=== PATIENT | male | born 1960 | race Caucasian/White ===

== ENCOUNTER 2021-04-01 13:14 | Outpatient (CLI) | payer BC, SELFPAY ==
--- NOTE | ~2021-04-01 | XR_ITS ---
EXAMINATION: XR fl inj hip RT for MR/CT DATE: 04/01/2021 14:35 INDICATION: Right hip pain TECHNIQUE: A time-out was performed to verify the patient's name, date of , and procedure to b e performed. The procedure, including the risks and benefits, was discussed with the patient. Risks d iscussed included bleeding and infection. The patient understood the risks and agreed to proceed. The skin overlying the right hip joint was prepared and draped in usual sterile fashion. The skin and vázquez bcutaneous tissues were infiltrated with 1% lidocaine for local anesthesia. A 22 G needle was advanc ed under fluoroscopic guidance into the joint. Injectate consisting of 12 mL of 1:100 0.1 mmol/kg Mul tihance, 1:4 1% lidocaine, and 1:4 Omnipaque 240 was instilled. The needle was removed and the entry site was cleaned and dressed. There were no immediate complications. Fluoroscopy exposure time was 0. 7 minutes. The DAP for this procedure was 3.198 Gycm2. FINDINGS: Real-time fluoroscopy demonstrates the needle and contrast in the right hip joint. IMPRESSION: 1. Successful right hip joint injection of contrast for subsequent MR arthrography. Reviewed, dictated and finalized at location B. IMPRESSION: 1. Successful right hip joint injection of contrast for subsequent MR arthrogra phy.
--- NOTE | ~2021-04-01 | MR_ITS ---
EXAMINATION: MR hip RT w con DATE: 04/01/2021 15:30 INDICATION: Right hip pain TECHNIQUE: Magnetic resonance (MR) arthrogram of the right hip was performed following intra-articula r gadolinium contrast injection and without intravenous contrast. Details of the hip joint injection have been dictated separately. Sequences included small field of view of the right hip with axial and sagittal T1-weighted FS SE and T2-weighted FS FSE and coronal T1-weighted SE and T2-weighted FS FSE . Additional T1-weighted FGRE images in a radial pattern oriented orthogonal to the acetabular rim we re obtained for evaluation of the labrum. COMPARISON: None. FINDINGS: Bones/labrum/cartilage: Alignment is normal. No fracture, avascular necrosis or pathologic marrow replacing process. Diffuse tear of the anterosuperior to posterior right acetabular labrum most severe posterior superiorly at the 10:30 position where it appears thickened and globular with amorphous increased signal. Mild left hip osteoarthritis with nonuniform joint space narrowing and partial-thickness cartilage loss also m ost severe posterior superiorly but without degenerative subchondral changes. Severe lower lumbar spo ndylosis. Fluid: Injected contrast within the right hip joint space with no evident loose osteochondral bodies. Physio logic amount of fluid in the left hip joint space. There are fluid collections along the right greate r trochanter consistent with mild right gluteus medius and gluteus minimus bursitis. Minimal right tr ochanteric bursitis. Soft tissues: Partial tears at the right greater trochanteric anterior facet insertion of the right gluteus minimus tendon and at the superolateral footplate of the anterior right gluteus medius tendon. Posterior fac et insertion appears to remain intact. Similar partial tears are suggested at the contralateral left hip on the larger field of view images but without the associated bursitis. There is relatively symme tric moderate fatty atrophy of the bilateral gluteus minimus muscle bellies and mild atrophy of the a nterior aspect of the bilateral gluteus medius muscle bellies. The bilateral iliopsoas and proximal h amstring tendons are normal. Limited evaluation of visceral organs of the pelvis is unremarkable. No pathologically enlarged pelvic/inguinal lymphadenopathy. IMPRESSION: 1. Gluteus medius and minimus bursitis with partial tears along the anterior and superolateral facet footplates of the right gluteus medius minimus and medius tendons respectively. 2. Similar partial tears suggestive the contralateral left gluteus minimus and medius tendons but wit hout associated bursitis. 3. Mild right hip osteoarthritis with diffuse labral tear. Reviewed, dictated and finalized at location A. IMPRESSION: 1. Gluteus medius and minimus bursitis with partial tears along the anterior an d superolateral facet footplates of the right gluteus medius minimus and medius tendons respectively. 2. Similar partial tears suggestive the contralateral left gluteus minimus and medius tendons but without associated bursitis. 3. Mild right hip osteoarthritis with diffuse labral tear.
== END 2021-04-01 13:15 ==
PROVIDERS: PCP Internal Medicine; Visit Provider Orthopaedic Surgery
DX: M25.551 Pain in right hip (principal); M17.11 Unilateral primary osteoarthritis, right knee; M70.71 Other bursitis of hip, right hip; S76.011A Strain of muscle, fascia and tendon of right hip, initial encounter
CPT/HCPCS: 20610; 73722; 77002; A9577; Q9966

== ENCOUNTER 2021-04-08 02:26 | Day surgery (SDC) | payer BC, SELFPAY ==
[2021-03-30 15:30] VITALS: BMI 23.8
--- NOTE | 2021-04-07 12:19 | PM.HPGS ---
History of Present Illness History of Present Illness Consent: Risks, benefits, and alternatives have been discussed and questions answered. Patient agrees to proceed with procedure. Chief complaint: hx of colon polyps Narrative: Adelso Cortez is a 60 year old male referred for colon cancer screening. He had 2 polyps removed about 6 years ago Review of Systems Review of Systems: All systems reviewed & are unremarkable except as noted in HPI and below PMFSH Social History Social History Smoking status: Never smoker Alcohol intake: current Drinks per week: 4 Living arrangements: with family Spiritual care concerns: No Meds Home Medications and Allergies Home Medications Medication Instructions Recorded Confirmed Type ascorbic acid (vitamin C) [Vitamin 1 g PO DAILY 03/30/21 03/30/21 History C] multivit,calc,ebm-JH-[id number]-lycop 1 tablet PO DAILY 03/30/21 03/30/21 History [One-A-Day Men's Complete] vitamin B complex 1 tablet PO DAILY 03/30/21 03/30/21 History Allergies Allergy/AdvReac Type Severity Reaction Status Date / Time No Known Allergies Allergy Verified 04/08/21 06:45 Exam Resp: Auscultation: clear to auscultation bilaterally Cardio: Rate: regular rate Rhythm: regular rhythm GI: GI Palp: Yes Soft to palpation and No Tenderness to palpation present (GI) Assessment and Plan Assessment and plan (1) Colon cancer screening: Code(s): Z12.11 - Encounter for screening for malignant neoplasm of colon Status: Acute Assessment and Plan: Colonoscopy with possible biopsy or polypectomy or cautery or injection of substances.
[2021-04-08 06:46] VITALS: BP 142/80; PULSE 67; RESP 16; TEMP 36.1; O2SAT 100; BMI 23.8
[2021-04-08] MEDS: LACTATED RINGERS 1,000 ML 150 ML IV CONT (06:53)
--- NOTE | 2021-04-08 07:36 | P.PNAN_ITS ---
Anes - Initial Pre Proc Eval Procedure: Operation Date: 04/08/21 08:00 Proposed Procedures p Screening Colonoscopy - Rustam Shah MD Date/Time: 04/08/21 07:36 Surgeon: Rustam Shah MD Pre Op Diagnosis: hx of colon polyps Patient Data Age: 60 Gender: M Height: 1.91 m Weight: 86.3 kg Last Vital Signs Temp 96.9 F L 04/08/21 06:46 Pulse 67 04/08/21 06:46 Resp 16 04/08/21 06:46 BP 142/80 H 04/08/21 06:46 Pulse Ox 100 04/08/21 06:46 Allergies Allergy/AdvReac Type Severity Reaction Status Date / Time No Known Allergies Allergy Verified 04/08/21 06:45 Home Medications Medication Instructions Recorded Confirmed Type ascorbic acid (vitamin C) [Vitamin 1 g PO DAILY 03/30/21 03/30/21 History C] multivit,calc,hov-UV-B6-lycop 1 tablet PO DAILY 03/30/21 03/30/21 History [One-A-Day Men's Complete] vitamin B complex 1 tablet PO DAILY 03/30/21 03/30/21 History Patient hx anesthesia problems: none Family hx anesthesia problems: none [facility] Past Medical History Medical History (Updated 04/08/21 @ 07:32 by Kurt Jansen MD) Sarcoidosis, lung Social History Social History Smoking status: Never smoker Alcohol intake: current Drinks per week: 4 Living arrangements: with family Spiritual care concerns: No Anes - Eval Final PreProcedure Day of Procedure 04/08/21 07:36 Patient weight: normal Heart: regular rate and rhythm Lungs: clear to auscultation Airway: Mallampati scale class II Neurological: alert and oriented Last oral intake: >/= 8 hours ASA classification: II Emergent: no Anesthetic plan: proceed Anesthesia type and monitoring: general GIVS and standard monitoring Informed Consent: The patient's anesthetic plan and its attendant risks and be nefits were discussed with the patient/family/POA. Questions were solicited and answers provided to the satisfaction of the patient/family/POA.
[2021-04-08 08:24] VITALS: BP 111/65; PULSE 53; RESP 16; O2SAT 95
--- NOTE | 2021-04-08 08:26 | SUR.OPER ---
SIGMOID COLON POLYP UNRETRIEVED, DR HAY AWARE, NO NEW ORDERS
[2021-04-08 08:34] VITALS: BP 108/58; PULSE 66; RESP 16; O2SAT 100
[2021-04-08 08:44] VITALS: BP 143/82; PULSE 63; RESP 18; O2SAT 100
== END 2021-04-08 08:51 | disposition home or self-care (01) ==
PROVIDERS: PCP Internal Medicine; Visit Provider Internal Medicine Gastroenterology
PROC: 0DJD8ZZ Inspection of Lower Intestinal Tract, Via Natural or Artificial Opening Endoscopic (ICD-10-PCS; CPT 45378; principal; 2021-04-08 08:00)
DX: Z12.11 Encounter for screening for malignant neoplasm of colon (principal); K57.30 Diverticulosis of large intestine without perforation or abscess without bleeding; D12.3 Benign neoplasm of transverse colon; K63.5 Polyp of colon
CPT/HCPCS: 45380; 45385; 88305; J2704; J7120

== ENCOUNTER 2024-10-29 14:18 | Outpatient (CLI) | payer BC, SELFPAY ==
--- NOTE | 2024-10-29 | ECHO_ITS ---
Patient Info Name: Adelso Cortez Age: 64 years : 1960 Gender: Male Ht: 75 in Wt: 180 lbs BSA: 2.07 m2 HR: 63 bpm BP: 160 / 87 mmHg Heart Rhythm: Sinus Rhythm Technical Quality: Good Exam Date: 10/29/2024 3:09 PM Exam Location: Echo Lab Patient Status: Outpatient Admit Date: 10/29/2024 Staff Ordering Physician: DanielChris MD Interactive Producer: Taty Paez RDCS Attending Provider: ShaylaChris MD Exam Type: CA echo doppler color flow Study Info Indications - D86.9 Sarcoidosis Complete two-dimensional, color flow and Doppler transthoracic echocardiogram is performed. Summary 1. Complete two-dimensional, color flow and Doppler transthoracic echocardiogram is performed. 2. There is mild concentric increased left ventricular wall thickness with more pronounced basal septal hypertrophy. No LVOT obstruction is seen. 3. Left ventricular chamber dimension is normal. 4. Left ventricular systolic function is normal, estimated at 60-65%. 5. The left ventricular diastolic function is grade II diastolic dysfunction. 6. Left atrial chamber dimension is mildly enlarged. 7. There is mild to moderate mitral valve regurgitation. 8. There is mild tricuspid valve regurgitation. Left Ventricle There is mild concentric increased left ventricular wall thickness with more pronounced basal septal hypertrophy. No LVOT obstruction is seen. Left ventricular chamber dimension is normal. Left ventricular systolic function is normal, estimated at 60-65%. The left ventricular diastolic function is grade II diastolic dysfunction. Right Ventricle Right ventricular chamber dimension is normal. Right ventricular systolic function is normal. Left Atria Left atrial chamber dimension is mildly enlarged. Right Atria Right atrial chamber dimension is normal. Atrial Septum Intact interatrial septum visualized by color flow imaging. Aortic Valve The aortic valve is trileaflet. There is mild aortic valve sclerosis. There is no aortic valve stenosis. There is trace aortic valve regurgitation. Pulmonic Valve The pulmonic valve is normal. There is no pulmonic valve stenosis. There is trace pulmonic regurgitation. Mitral Valve The mitral valve has normal leaflets. There is no mitral valve stenosis. There is mild to moderate mitral valve regurgitation. Tricuspid Valve The tricuspid valve leaflets are normal. There is no significant tricuspid valve stenosis. There is mild tricuspid valve regurgitation. No pulmonary hypertension, estimated pulmonary arterial systolic pressure is 33 mmHg. Pericardium/Pleural The pericardium appears normal. There is no pericardial effusion. Inferior Vena Cava Normal inferior vena cava with >50% collapse upon inspiration consistent with normal right atrial pressure, 10 mmHg. Aorta The aortic root size at the sinus of Valsalva is normal. The prox ascending aorta size is normal. Left Ventricular Outflow Tract Name Value Normal LVOT 2D LVOT Diameter 2.2 cm LVOT Doppler LVOT Peak Gradient 4 mmHg LVOT Mean Gradient 2 mmHg LVOT VTI 22 cm LVOT VTI/AV VTI Ratio 0.7 LVOT Stroke Volume 84 ml LVOT CO 4.9 l/min LVOT CI 2.4 l/min/m2 Pulmonic Valve Name Value Normal RVOT Doppler RVOT Peak Gradient 2 mmHg PV Doppler PV Peak Gradient 3 mmHg Mitral Valve Name Value Normal MV Doppler MV Decel Emanuel 386 cm/s2 MV PHT 56 ms MV Area (PHT) 3.9 cm2 4.0-5.0 MV Diastolic Function MV E Peak Velocity 74 cm/s MV A Peak Velocity 68 cm/s MV E/A 1.1 MV Decel Time 192 ms MV Annular TDI MV E/e' (Septal) 10.4 <=8.0 MV E/e' (Lateral) 6.9 <=8.0 MV E/e' (Average) 8.7 Tricuspid Valve Name Value Normal TV Regurgitation Doppler TR Peak Velocity 242 cm/s TR Peak Gradient 23 mmHg Estimated PAP/RSVP RA Pressure 10 mmHg <=5 PA Systolic Pressure 33 mmHg <36 RV Systolic Pressure 33 mmHg <36 Aorta Name Value Normal Ascending Aorta Ao Root Diameter (MM) 3.0 cm Ao Root Diam Index (MM) 1.4 cm/m2 Aortic Valve Name Value Normal AV Doppler AV Peak Velocity 146 cm/s AV Peak Gradient 9 mmHg AV Mean Gradient 4 mmHg AV VTI 31 cm AV Area (Cont Eq VTI) 2.7 cm2 >=3.0 AV Area (Cont Eq Cali) 2.5 cm2 AV Regurgitation 2D LVOT Area 3.8 cm2 Ventricles Name Value Normal LV Dimensions 2D/MM IVS Diastolic Thickness (2D) 1.2 cm 0.6-1.0 LVID Diastole (2D) 4.7 cm 4.2-5.8 LVIW Diastolic Thickness (2D) 1.2 cm 0.6-1.0 LVID Systole (2D) 3.1 cm 2.5-4.0 LVOT Diameter 2.2 cm LV Mass (2D Cubed) 210.18 g 88.00-224.00 LV Mass Index (2D Cubed) 101 g/m2 49-115 Relative Wall Thickness (2D) 0.52 LV Fractional Shortening/Ejection Fraction 2D/MM LV Fractional Shortening (2D) 33 % 25-43 LV EF (2D Teicholz) 62 % 52-72 LV Diastolic Volume (4C MOD) 112 ml LV EF (4C MOD) 58 % LV Diastolic Volume (2C MOD) 60 ml LV EF (2C MOD) 61 % LV Diastolic Volume (BP MOD) 84 ml 62-150 LV Diastolic Volume Index (BP MOD) 41 ml/m2 34-74 LV Systolic Volume (BP MOD) 33 ml 21-61 LV Systolic Volume Index (BP MOD) 16 ml/m2 11-31 LV EF (BP MOD) 61 % 52-72 LV Diastolic Length (4C) 8.9 cm LV Systolic Length (4C) 6.8 cm LV Stroke Volume (4C MOD) 65 ml Atria Name Value Normal LA Dimensions LA Dimension (MM) 4.7 cm 3.0-4.1 LA Volume (4C A-L) 70 ml LA Volume (BP A-L) 72 ml RA Dimensions RA Area (4C) 15.9 cm2 <=18.0 Report Signatures
--- OUTSIDE RECORDS SUMMARY | 2024-10-29 15:59 | XMS_ITS | Referral Summary ---
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 09/21 Immunizations Immunization Administration Dates Next Due Influenza, Quadrivalent, Yanet l Culture-based MDCK, Preservative Free, Antibiotic Free, Intramuscular 05/05/2022,05/22/2020,07/04/2019 Influenza, Quadrivalent, Spl it, Preservative Free, Intramuscular 06/24/2023,06/10/2021,05/10/2018 Influenza, Trivalent, IM (MDV) 04/13/2017 Influenza, Trivalent, Preser vative Free, Intramuscular 05/11/2015 Influenza, Unspecified 05/22/2020,05/26/2019, Tdap 10/01/2019,05/11/2015,05/03/2015 Social History Tobacco Use Types Packs/Day Years Used Date Smoking Tobacco: Never Smokeless Tobacco: Never Personal Safety Answer Date Recorded Getting School Help Needed Not on file 07/27 Sex and Gender Information Value Date Recorded Sex Assigned at Not on file Legal Sex Male 11:29 AM CDT Gender Identity Not on file Sexual Orientation Not on file Last Filed Vital Signs Vital Sign Reading Time Taken Comments Blood Pressure 152/81 12/28/2023 12:02 PM CDT Pulse 70 12/28/2023 12:02 PM CDT Temperature 36.2 C (97.2 F) 12/28/2023 12:02 PM CDT Respiratory Rate 18 12/28/2023 12:02 PM CDT Oxygen Saturation 99% 12/28/2023 12:02 PM CDT Inhaled Oxygen Concentration - - Weight 87.5 kg (193 lb) 12/28/2023 12:02 PM CDT Height 185.4 cm (6' 1 ) 12/28/2023 12:02 PM CDT Body Mass Index 25.46 12/28/2023 12:02 PM CDT Plan of Treatment Not on file [place] [place] [place] Care Teams Fiber Technologist Relationship Specialty Start Date End Date Chris Sanchez MD PCP - General Internal Medicine 06/04/20 Lul Norris MD [address] [facility] PULMON[facility] AND [facility], [address] [address] Referring Physician Pulmonary Disease 08/17/23
--- OUTSIDE RECORDS SUMMARY | 2024-10-29 15:59 | XMS_ITS | Clinical Summary ---
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 09/21 Immunizations Immunization Administration Dates Next Due Influenza, Quadrivalent, Yanet l Culture-based MDCK, Preservative Free, Antibiotic Free, Intramuscular 05/05/2022,05/22/2020,07/04/2019 Influenza, Quadrivalent, Spl it, Preservative Free, Intramuscular 06/24/2023,06/10/2021,05/10/2018 Influenza, Trivalent, IM (MDV) 04/13/2017 Influenza, Trivalent, Preser vative Free, Intramuscular 05/11/2015 Influenza, Unspecified 05/22/2020,05/26/2019, Tdap 10/01/2019,05/11/2015,05/03/2015 Family History Medical History Relation Name Comments Cancer Brother Stroke Father Relation Name Status Comments Brother Father Mother Social History Tobacco Use Types Packs/Day Years Used Date Smoking Tobacco: Never Smokeless Tobacco: Never Personal Safety Answer Date Recorded Getting School Help Needed Not on file 07/27 Sex and Gender Information Value Date Recorded Sex Assigned at Not on file Legal Sex Male 11:29 AM CDT Gender Identity Not on file Sexual Orientation Not on file Obstetrics History Last Filed Vital Signs Vital Sign Reading [...] 12/28/2023 12:02 PM CDT Plan of Treatment Health Maintenance Due Date Last Done Comments Colon Cancer Screening-Colonoscopy 1960 Depression Screening 1960 Fall Risk Assessment 1960 Hepatitis C Screening 1960 Prostate Cancer Screening-PSA 1960 Hepatitis B Screening 1976 Pneumococcal vaccine 65+ (1 of 2 - PCV) 1977 Zoster Vaccine (1 of 2) 2008 Well Visit 65+ 2023 Covid-19 Vaccine (4 - 2023-2 5 season) 2024 06/24/2021, 2020, 08/05/2020 Influenza Vaccine (#1) 2024 3, 05/05/2022, 06/10/2021, Additional history exists DTaP/Tdap/Td Vaccine (4 - Td or Tdap) 09/30/2029 10/01/2019, 05/11/2015, 05/03/2015 Insurance [employer] Care Teams Revolving Field Assembler Relationship Specialty Start Date End Date Chris Sanchez MD PCP - General Internal Medicine 06/04/20 Lul Norris MD [address] [facility] AND [facility], [address] [address] Referring Physician Pulmonary Disease 08/17/23
--- OUTSIDE RECORDS SUMMARY | 2024-10-29 15:59 | XMS_ITS | Clinical Summary ---
Author Organization [facility] Address [address] [place] [address] Care Team Providers Care Specialty Trimmer Name Role Phone Chris Sanchez MD Primary Care Provider [phone] Allergies No known active allergies Medications rosuvastatin 10 MG tablet Take 10 mg by mouth daily. 1 9 Active PROAIR HFA 108 (90 Base) MCG/ACT inhalerIndicatio ns:Chronic obstructive pulmonary disease, unspecified COPD type ([facility]) INHALE 2 PUFFS INTO THE LUNGS EVERY 4 HOURS NEEDED FOR WHEEZING 8.5 g 9 Active ADVAIR DISKUS 500-50 MCG/DOSE inhalerIndicatio ns:Chronic obstructive pulmonary disease, unspecified COPD type ([facility]) INHALE 1 PUFF INTO THE LUNGS TWICE DAILY 1 Inhaler 5 0 Active Active Problems Problem Noted Date Diagnosed Date COPD (chronic obstructive pu lmonary disease) ([facility]) 09/21/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 09/21 Sarcoidosis 09/21/2016 Immunizations Name Administration Dates Next Due Influenza Adult (Generic) 05/26/2019,06/17/2018 MODERNA COVID-19 (12+) MRNA, LNP-S, PF, 100 MCG/ 0.5 ML DOSE 2020,08/05/2020 Family History Medical History Relation Comments CVA Father Relation Status Comments Father Social History Tobacco Use Types Packs/Day Years Used Date Smoking Tobacco: Never Smokeless Tobacco: Never Sex and Gender Information Value Date Recorded Sex Assigned at Not on file Legal Sex Male 9:09 PM CDT Gender Identity Not on file Sexual Orientation Not on file Last Filed Vital Signs Vital Sign Reading Time Taken Comments Blood Pressure 118/76 08/26/2019 8:36 AM TEST TUBE MAKER Pulse 82 08/26/2019 8:36 AM TEST TUBE MAKER Temperature 36.8 C (98.2 F) 08/26/2019 8:36 AM TEST TUBE MAKER Respiratory Rate 16 08/26/2019 8:36 AM TEST TUBE MAKER Oxygen Saturation 98% 08/26/2019 8:36 AM TEST TUBE MAKER Inhaled Oxygen Concentration - - Weight 95.7 kg (211 lb) 08/26/2019 8:36 AM TEST TUBE MAKER Height 190.5 cm (6' 3 ) 08/26/2019 8:36 AM TEST TUBE MAKER Body Mass Index 26.37 08/26/2019 8:36 AM TEST TUBE MAKER Plan of Treatment Health Maintenance Due Date Last Done Comments Colorectal Cancer Screening Colonoscopy (10 Years) 1960 Pneumococcal Vaccine: 65+ Years (1 of 2 - PCV) 1964 Hepatitis C 1976 Zoster Vaccines (1 of 2) 2008 RSV Immunization or 60+ Years (1 - Risk 60-74 years 1-dose series) 2018 COVID-19 Vaccine (3 - 2023-2 5 season) 2024 2020, 08/05/2020 DTaP, Tdap and Td Vaccines ( 3 - Td or Tdap) 09/30/2029 10/01/2019, 05/03/2015 Meningococcal B Vaccine Aged Out No l onger eligible based on patient's age to complete this topic Meningococcal Vaccine Aged Out No teresita clair eligible based on patient's age to complete this topic RSV Immunizations Under 20 Months Aged Out No longer eligible b ased on patient's age to complete this topic Additional Health Concerns Infection Onset Date Last Indicated MRSA 02/27/2017 02/27/2017 Insurance Care Teams Specialty Trimmer Relationship Specialty Start Date End Date Chris Sanchez MD [address] [place] [address] PCP - General INTERNAL MEDICINE 11/19/18
== END 2024-10-29 14:19 | disposition home or self-care (01) ==
PROVIDERS: PCP Internal Medicine; Visit Provider Internal Medicine
DX: D86.9 Sarcoidosis, unspecified (principal); I34.0 Nonrheumatic mitral (valve) insufficiency; I36.1 Nonrheumatic tricuspid (valve) insufficiency
CPT/HCPCS: 93306